=== PATIENT | male | born 1950 | race African-American/Black ===

== ENCOUNTER 2025-07-06 23:06 | Emergency (ER) | payer MEDICARE, SELFPAY ==
--- NOTE | ~2025-07-06 | XR_ITS ---
Examination: XR chest 2V Clinical History: shortness of breath Comparison: None Technique: PA and Lateral Findings: Cardiomegaly. Diffusely increased interstitial markings. No acute bony abnormality. IMPRESSION: 1. Interstitial pulmonary edema and/or pneumonitis. 2. Cardiomegaly. Reviewed, dictated and finalized at location R. LOCATOR
--- OUTSIDE RECORDS SUMMARY | 2025-07-06 02:40 | XMS_ITS ---
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 Up Plan requir ed at this time. Timeframe of Screening: Today Examination Category Sub-Category Detail Notes Category Not es Mental Status Exam SENSORIUM AND COGNITION A&Ox4 ATTENTION AND CONCENTRATION No deficits APPEARANCE Appropriate ATTITUDE AND BEHAVIOR Cooperative, Pleas ant EYE CONTACT Completed via Zoom. Client looked at the camera during the interview. AFFECT Congruent with repor teja mood MOOD Euthymic SPEECH QUANTITY Appropriate SPEECH QUALITY Fluent, Appropriate volume THOUGHT PROCESS Coherent and goal di rected THOUGHT CONTENT Appropriate - WNL MOTOR ACTIVITY Completed via Zoom. No abnormal movements or tics noted. SUICIDAL IDEATION Denies suicidal idea tion HOMICIDAL IDEATION Denies homicidal kelly ation HALLUCINATIONS Denies hallucination s INSIGHT Good JUDGMENT Good FUND OF KNOWLEDGE Good LANGUAGE Appropriate- WNL DEPRESSIVE SYMPTOMS Denies ELEVATED MOOD SYMPTOMS Denies, Not noted /observed ANXIETY Denies
[2025-07-06 23:21] VITALS: BP 201/84; PULSE 56; RESP 15; O2SAT 98
--- NOTE | 2025-07-06 23:32 | ECG_ITS ---
Test Date: 2025-07-06 23:56:23 Measurements Intervals [place] Rate: 58 P: 55 [place]: 154 QRS: 31 QRSD: 98 T: 161 QT: 440 QTc: 435 Interpretive Statements SINUS BRADYCARDIA POSSIBLE LEFT ATRIAL ENLARGEMENT [-0.1mV P-WAVE IN V1/V2] LEFT VENTRICULAR HYPERTROPHY AND ST-T CHANGE [VOLTAGE CRITERIA PLUS ST/T ABNORMALITY] No previous ECG available for comparison Electronically Signed On 07-07-2025 08:35:52 [employer] by Severo Mosley M.D.
--- NOTE | 2025-07-06 23:34 | ED.WEAKNESS ---
HPI - Weakness General Chief complaint: Shortness of Breath/Dyspnea Stated complaint: I don't feel good. Time Seen by Provider: 07/06/25 23:21 History of Present Illness HPI Narrative: Patient is a 74-year-old male who presents to the ER with complaints of ?not feeling good. He reports he started experiencing shakes approximately half an hour prior to arrival. Patient endorses mild shortness of breath and a slight headache. Denies any chest pain, recent fevers, cough, or urinary symptoms. Patient endorses a history of high blood pressure, depression, and substance abuse. He currently is receiving treatment at [place] for cocaine abuse. Related Data Allergies Allergy/AdvReac Type Severity Reaction Status Date / Time No Known Allergies Allergy Verified 07/06/25 23:07 Review of Systems Review of Systems: All systems reviewed & are unremarkable except as noted in HPI and below Exam Narrative: GENERAL: Well appearing, well-nourished, non-toxic, in no acute distress. HEAD: Normocephalic, atraumatic. NECK: Supple. No adenopathy, no masses. RESPIRATORY: Airway patent, respirations nonlabored. Clear to auscultation bilaterally, no rales, rhonchi, wheezing. CARDIOVASCULAR: Regular rate and rhythm, + murmur. Peripheral pulses 2+ and equal bilaterally. ABDOMINAL: Soft, nontender, nondistended, no hepatosplenomegaly. Normoactive BS. MUSCULOSKELETAL: Moves all extremities. Strength/ROM intact without gross deformities. SKIN: Warm, dry, normal color. No rashes. NEURO: A&O X3. Speech clear. Cranial nerves II-XII intact. No ataxic movements. PSYCHIATRIC: Appropriate mood and affect. Normal interaction. Course Vital Signs Vital signs: Vital Signs Pulse Rate 56 L 07/06/25 23:21 Respiratory Rate 15 07/06/25 23:21 Blood Pressure 201/84 H 07/06/25 23:21 Pulse Oximetry 98 07/06/25 23:21 Temperature 36.9 C 07/07/25 00:27 Pulse Rate 61 07/07/25 01:55 Respiratory Rate 17 07/07/25 01:55 Blood Pressure 178/87 H 07/07/25 01:55 Pulse Oximetry 95 07/07/25 01:55 Oxygen Delivery Room Air 07/06/25 23:52 MDM - Weakness MDM Narrative Medical decision making narrative: Patient is a 74-year-old male who presents to the ER with complaints of ?not feeling good. He reports he started experiencing shakes approximately half an hour prior to arrival. Patient endorses shortness of breath and slight headache. Denies any chest pain, recent fevers, cough, or urinary symptoms. Patient endorses a history of high blood pressure, depression, and substance abuse. He currently is receiving treatment at [place] for cocaine abuse. Labs Ordered: CBC, CMP, UA, UDS, COVID/flu/RSV, magnesium, proBNP, D-dimer, PTT, INR Imaging Ordered: Chest x-ray Medications Ordered: Hydralazine 50 mg p.o., Keflex p.o. Results: Patient's urinalysis indicates he has urinary tract infection. Diagnosis: Urinary tract infection Patient Education/Shared MDM: Results of lab work and imaging shared with patient. Pt reports he has no concerns pf STDs. He will be given a dose of Hydralazine PO and his first dose of oral antibiotic in the ER. Patient strongly advised to maintain hydration status upon discharge and follow-up with his PCP as soon as possible for further evaluation. He will be discharged home with a prescription for Keflex. Upon further evaluation, pt's BP has dropped to 178/87 without medication intervention so the Hydralazine will be held. Pt reports he takes his regular blood pressure medications in the morning. Strict return precautions provided. Patient verbalized understanding and is in agreement with plan. Vital signs stable at time of discharge. All questions answered. [id number]- Pt reports he is not circumcised and he would like to have a consult with urology to discuss circumcision. Will put through a referral. Pt's blood pressure is trending upwards again. Will give pt oral Hydralazine prior to discharge. Differential Diagnosis Differential diagnosis: Likely sepsis, dehydration and other (urinary tract infection, illicit drug abuse) Lab Data Attestation: I reviewed the patient's lab results. 07/06/25 23:52 07/06/25 23:52 Labs: Lab Results 07/06/25 07/06/25 07/06/25 Range/Units 23:46 23:52 23:52 WBC 5.1 (4.5-10.0) K/mm3 RBC 4.21 L (4.6-6.20) M/mm3 Hgb 13.3 L (14.0-18.0) g/dL Hct 39.6 L (42.0-52.0) % MCV 94.1 (80-100) fl MCH 31.6 (26-34) pg MCHC 33.6 (32-36) g/dl RDW 12.2 (11.5-14.5) % Plt Count 146 L (150-375) k/mm3 MPV 11.5 H (7.4-10.4) fl Immature Gran % (Auto) 0.4 (0-0.5) % Neut % (Auto) 54.2 (45.5-73.1) % Lymph % (Auto) 31.3 (18.3-44.2) % [place] % (Auto) 7.6 (2.6-8.5) % Eos % (Auto) 5.5 H (0-4.4) % Baso % (Auto) 1.0 (0.2-1.2) % Lymph # (Auto) 1.60 (0.9-3.2) K/mm3 [place] # (Auto) 0.4 (0.1-0.6) K/mm3 Eos # (Auto) 0.3 (0-0.3) K/mm3 Baso # (Auto) 0.1 (0.0-0.1) K/mm3 Abs Immat Gran (auto) 0.02 (0.00-0.031) K/mm3 Absolute Neuts (auto) 2.8 (1.3-6.7) K/mm3 Absolute Nucleated RBC 0.000 (0.0-0.012) K/mm3 Nucleated RBC % 0.0 (0.0-0.2) % PT 13.2 (11.1-14.7) Seconds INR 1.0 APTT 30.6 (22.3-36.8) Seconds D-Dimer < 0.27 (<0.48) ug/mL Sodium 139 (137-145) mmol/L Potassium 4.5 (3.4-5.0) mmol/L Chloride 105 (98-107) mmol/L Carbon Dioxide 28 (22-30) mmol/L Anion Gap 6 (4-12) mmol/L BUN 24 H (9-20) mg/dL Creatinine 1.34 H (0.7-1.3) mg/dL Estim Creat Clear Calc Not Reportable Estimated GFR 52 L (59 - ) Glucose 98 (65-110) mg/dL Calcium 9.1 (8.4-10.2) mg/dL Magnesium 2.0 Cancelled (1.6-2.3) mg/dL Total Bilirubin 0.6 (0.2-1.3) mg/dL AST 50 (17-59) U/L ALT 78 H (6-50) U/L Alkaline Phosphatase 83 (38-126) U/L NT-Pro-B Natriuret Pep 744 H (19.9-100) pg/mL Total Protein (6.3-8.2) g/dL Albumin (3.5-5.1) g/dL Urine Color Yellow (Yellow) Urine Appearance Clear (Clear) Urine pH 5.5 (5.0-9.0) Ur Specific [place] 1.012 (1.001-1.035) Urine Protein Negative (Negative) mg/dL Urine Glucose (UA) Negative (Negative) mg/dL Urine Ketones Negative (Negative) mg/dL Ur Blood (Man) Trace (Negative) Urine Nitrate Negative (Negative) Urine Bilirubin Negative (Negative) Urine Urobilinogen 0.2 (<2.0) mg/dL Leukocyte Esterase Rfl 2+ H (Negative) GARCIA/UL Urine RBC 0-2 (0-2) /hpf Urine WBC 6-10 H (0-3) /hpf Ur Squamous Epith Cells None seen (Few) /hpf Urine Bacteria Trace /hpf Urine Casts 0-2 Urine Opiates Screen Negative (Negative) Urine Methadone Screen Negative (Negative) Ur Barbiturates Screen Negative (Negative) Ur Phencyclidine Scrn Negative (Negative) Ur Amphetamine Screen Negative (Negative) U Benzodiazepines Scrn Negative (Negative) Urine Cocaine Screen Negative (Negative) U Cannabinoids Screen Negative (Negative) Influenza A (RT-PCR) (Negative) Influenza B (RT-PCR) (Negative) RSV (RT-PCR) (Negative) SARS-CoV-2 RNA (RT-PCR) (Negative) 07/06/25 07/07/25 Range/Units 23:52 00:28 WBC (4.5-10.0) K/mm3 RBC (4.6-6.20) M/mm3 Hgb (14.0-18.0) g/dL Hct (42.0-52.0) % MCV (80-100) fl MCH (26-34) pg MCHC (32-36) g/dl RDW (11.5-14.5) % Plt Count (150-375) k/mm3 MPV (7.4-10.4) fl Immature Gran % (Auto) (0-0.5) % Neut % (Auto) (45.5-73.1) % Lymph % (Auto) (18.3-44.2) % [place] % (Auto) (2.6-8.5) % Eos % (Auto) (0-4.4) % Baso % (Auto) (0.2-1.2) % Lymph # (Auto) (0.9-3.2) K/mm3 [place] # (Auto) (0.1-0.6) K/mm3 Eos # (Auto) (0-0.3) K/mm3 Baso # (Auto) (0.0-0.1) K/mm3 Abs Immat Gran (auto) (0.00-0.031) K/mm3 Absolute Neuts (auto) (1.3-6.7) K/mm3 Absolute Nucleated RBC (0.0-0.012) K/mm3 Nucleated RBC % (0.0-0.2) % PT (11.1-14.7) Seconds INR APTT (22.3-36.8) Seconds D-Dimer (<0.48) ug/mL Sodium (137-145) mmol/L Potassium (3.4-5.0) mmol/L Chloride (98-107) mmol/L Carbon Dioxide (22-30) mmol/L Anion Gap (4-12) mmol/L BUN (9-20) mg/dL Creatinine (0.7-1.3) mg/dL Estim Creat Clear Calc Estimated GFR (59 - ) Glucose (65-110) mg/dL Calcium (8.4-10.2) mg/dL Magnesium (1.6-2.3) mg/dL Total Bilirubin (0.2-1.3) mg/dL AST (17-59) U/L ALT (6-50) U/L Alkaline Phosphatase (38-126) U/L NT-Pro-B Natriuret Pep Cancelled (19.9-100) pg/mL Total Protein 6.7 (6.3-8.2) g/dL Albumin 3.9 (3.5-5.1) g/dL Urine Color (Yellow) Urine Appearance (Clear) Urine pH (5.0-9.0) Ur Specific [place] (1.001-1.035) Urine Protein (Negative) mg/dL Urine Glucose (UA) (Negative) mg/dL Urine Ketones (Negative) mg/dL Ur Blood (Man) (Negative) Urine Nitrate (Negative) Urine Bilirubin (Negative) Urine Urobilinogen (<2.0) mg/dL Leukocyte Esterase Rfl (Negative) GARCIA/UL Urine RBC (0-2) /hpf Urine WBC (0-3) /hpf Ur Squamous Epith Cells (Few) /hpf Urine Bacteria /hpf Urine Casts Urine Opiates Screen (Negative) Urine Methadone Screen (Negative) Ur Barbiturates Screen (Negative) Ur Phencyclidine Scrn (Negative) Ur Amphetamine Screen (Negative) U Benzodiazepines Scrn (Negative) Urine Cocaine Screen (Negative) U Cannabinoids Screen (Negative) Influenza A (RT-PCR) Negative (Negative) Influenza B (RT-PCR) Negative (Negative) RSV (RT-PCR) Negative (Negative) SARS-CoV-2 RNA (RT-PCR) Negative (Negative) Imaging Data Attestation: I personally reviewed and interpreted this imaging study as follows: Radiologist's impression: No acute cardiopulmonary abnormalities. Discharge Plan Discharge Clinical Impression: Urinary tract infection, Mild shortness of breath, Weakness generalized, History of drug abuse, History of CHF (congestive heart failure) Patient Disposition: Home Condition: Stable Instructions: Antibiotic Form, Urinary Tract Infection in Men (ED) Additional Instructions: Please return to the ER with any worsening symptoms. 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 Take all medications as prescribed, including regularly scheduled medications. Please complete your full dose of antibiotics. Remember to drink lots of water. Patient Language: Cambodian Prescriptions: New cephalexin 500 mg capsule 500 mg PO Q8H 7 Days Qty: 21 0RF Follow-up/Referrals: PHYSICIAN NOT ON STAFF,NONSTAFF [Non-Staff] Casey Burns MD [Physician, Urology] Time of Disposition: 01:59
[2025-07-06 23:39] VITALS: BP 205/107; PULSE 61; RESP 21; O2SAT 96
[2025-07-06 23:52] VITALS: O2SAT 95
[2025-07-06 23:57] LABS: Hematocrit 39.6 % (42.0-52.0); Hemoglobin 13.3 g/dL (14.0-18.0); Immature Granulocyte Percent A 0.4 % (0-0.5); Lymphocytes Absolute Auto 1.60 K/mm3 (0.9-3.2); Mean Corpuscular HGB Conc 33.6 g/dl (32-36); Mean Corpuscular Hemoglobin 31.6 pg (26-34); Mean Corpuscular Volume 94.1 fl (80-100); Nucleated Red Blood Cells Absolute Auto 0.000 K/mm3 (0.0-0.012); Nucleated Red Blood Cells Perc 0.0 % (0.0-0.2); Platelet Count Result 146 k/mm3 (150-375); Red Blood Count 4.21 M/mm3 (4.6-6.20); White Blood Count 5.1 K/mm3 (4.5-10.0)
[2025-07-07 00:01] VITALS: BP 205/107; PULSE 62; RESP 23; O2SAT 99
[2025-07-07 00:08] LABS: Alanine Aminotransferase 78 U/L (6-50); Albumin Level 3.9 g/dL (3.5-5.1); Alkaline Phosphatase 83 U/L (38-126); Anion Gap 6 mmol/L (4-12); Aspartate Amino Transferase 50 U/L (17-59); Bilirubin,Total 0.6 mg/dL (0.2-1.3); Blood Urea Nitrogen 24 mg/dL (9-20); Calcium 9.1 mg/dL (8.4-10.2); Carbon Dioxide 28 mmol/L (22-30); Chloride 105 mmol/L (98-107); Estimated Glomerular Filt Rate 52; Glucose 98 mg/dL (65-110); Magnesium 2.0 mg/dL (1.6-2.3); Potassium 4.5 mmol/L (3.4-5.0); Sodium 139 mmol/L (137-145); Total Protein 6.7 g/dL (6.3-8.2)
[2025-07-07 00:09] LABS: Add Urine Microscopic? YES; Appearance Urine Clear (Clear); Glucose Urine UA Negative (Negative); Leukocyte Esterase Ur 2+ LEU/UL (Negative); Nitrate Urine Negative (Negative); Non Pathogenic Casts 0-2; Specific Grav Ur 1.012 (1.001-1.035)
[2025-07-07 00:17] LABS: NT Pro B Type Natriuretic Pept 744 pg/mL (19.9-100)
[2025-07-07 00:19] LABS: Cannabinoid Screen Urine Negative (Negative)
[2025-07-07 00:25] LABS: INR 1.0; Prothrombin Time 13.2 Seconds (11.1-14.7)
[2025-07-07 00:27] VITALS: TEMP 36.9
[2025-07-07 00:27] LABS: Partial Thromboplastin Time 30.6 Seconds (22.3-36.8)
[2025-07-07 01:09] LABS: Influenza A QL RT-PCR Negative (Negative); Influenza B QL RT-PCR Negative (Negative); RSV RNA, RT-PCR Negative (Negative); SARS-CoV-2 RNA PCR Negative (Negative)
[2025-07-07 01:20] VITALS: BP 189/90
[2025-07-07 01:55] VITALS: BP 178/87; PULSE 61; RESP 17; O2SAT 95
[2025-07-07] MEDS: CEPHALEXIN 500 MG CAPSULE PO (01:59)
--- OUTSIDE RECORDS SUMMARY | 2025-07-07 02:02 | XMS_ITS | Patient Health Record ---
Author Organization [facility] Address [address] [place] [address] Care Team Providers Care Manager University Name Role Phone Jose Ramon Delarosa Primary Care Provider Dalila Duque Unavailable [phone] Donte Clark Unavailable [phone] Inge, Lisa Unavailable [phone] Allergies No Known Allergies Results Component Value Reference Range Notes CBC With Differential/Platel et* Reviewed date:07/06/2025 08:43:32 AM Interpretation: Performing Lab:[facility], [address] [facility], Phone - [phone], Director - [place] Notes/Report: WBC 5.1 3.4-10.8 x10E3/uL RBC 4.86 4.14-5.80 x10E6/uL Hemoglobin 15.7 13.0-17.7 g/dL Hematocrit 46.8 37.5-51.0 % MCV 96 79-97 fL MCH 32.3 26.6-33.0 pg MCHC 33.5 31.5-35.7 g/dL RDW 11.9 11.6-15.4 % Platelets 180 150-450 x10E3/uL Neutrophils 57 Not Estab. % Lymphs 29 Not Estab. % Monocytes 8 Not Estab. % Eos 5 Not Estab. % Basos 1 Not Estab. % Neutrophils (Absolute) 2.9 1.4-7.0 x10E3/uL Lymphs (Absolute) 1.5 0.7-3.1 x10E3/uL Monocytes(Absolute) 0.4 0.1-0.9 x10E3/uL Eos (Absolute) 0.3 0.0-0.4 x10E3/uL Baso (Absolute) 0.1 0.0-0.2 x10E3/uL Immature Granulocytes 0 Not Estab. % Immature Grans (Abs) 0.0 0.0-0.1 x10E3/uL CMP 14 Comprehensive Metabol ic Panel* Reviewed date:07/06/2025 08:44:53 AM Interpretation: Performing Lab:[facility], [address] [facility], Phone - [phone], Director - [facility] Notes/Report: Glucose 92 70-99 mg/dL BUN 21 8-27 mg/dL Creatinine 1.36 0.76-1.27 mg/dL eGFR 55 >59 mL/min/1.73 BUN/Creatinine Ratio 15 10-24 Sodium 142 134-144 mmol/L Potassium 5.0 3.5-5.2 mmol/L Chloride 104 96-106 mmol/L Carbon Dioxide, Total 27 20-29 mmol/L Calcium 9.4 8.6-10.2 mg/dL Protein, Total 6.6 6.0-8.5 g/dL Albumin 4.2 3.8-4.8 g/dL Globulin, Total 2.4 1.5-4.5 g/dL Bilirubin, Total 0.6 0.0-1.2 mg/dL Alkaline Phosphatase 88 47-123 IU/L AST (SGOT) 20 0-40 IU/L ALT (SGPT) 24 0-44 IU/L QuantiFERON-TB Gold Plus (18 [id number]) Reviewed date:07/06/2025 08:43:46 AM Interpretation: Performing Lab:[facility], [address] [facility], Phone - [phone], Director - [facility] Notes/Report: QuantiFERON Incubation Incubation performed. QuantiFERON-TB Gold Plus Negative Negative No response to M tuberculosis antigens detected. Infection with M tuberculosis is unlikely, but high risk individuals should be considered for additional testing (ATS/IDSA/CDC Clinical Practice Guidelines, 2017). The reference range is an Antigen minus Nil result of <0.35 IU/mL. Chemiluminescence immunoassay methodology QuantiFERON Criteria QuantiFERON-TB Gold Plus is a qualitative indirect test for M tuberculosis infection (including disease) and is intended for use in conjunction with risk assessment, radiography, and other medical and diagnostic evaluations. The QuantiFERON-TB Gold Plus result is determined by subtracting the Nil value from either TB antigen (Ag) value. The Mitogen tube serves as a control for the test. QuantiFERON TB1 Ag Value 0.10 QuantiFERON TB2 Ag Value 0.09 QuantiFERON Nil Value 0.10 QuantiFERON Mitogen Value 2.91 Breathalyzer Reviewed date:07/01/2025 10:35:03 AM Interpretation: Performing Lab: Notes/Report: ELIANE 0.000 14 Panel Urine Drug Screen Reviewed date:07/01/2025 10:35:43 AM Interpretation: Performing Lab: Notes/Report: THC neg JACQUIE POS MOP (OPI) neg AMP neg MET neg BAR neg BZO neg MDMA neg MTD neg OXY neg PCP neg BUP neg TCA neg FTY neg Reason For Referral No Information Medications Medication SIG (Take, Route, Frequency, Duration) Notes Start Date End Date Status Sertraline HCl 25 MG 1 tablet Orally Onc e a day; Duration: 30 days Active traZODone HCl 50 MG 0.5 to 1 tablet at bedtime as needed Orally Once a day; Duration: 30 days Active Ergocalciferol 1.25 MG (01959 UT) 1 capsule Orally weekly Active Atorvastatin Calcium 40 MG 1 tablet Oral ly Once a day Active Lisinopril 10 MG 1 tablet Orally Once a day Active Mometasone Furoate 0.1 % 1 application Externally Once a day Active Tamsulosin HCl 0.4 MG 1 capsule Orally O nce a day Active Nicotine 14 MG/24HR 1 patch to skin Transdermal Once a day Not-Takin g Melatonin 5 MG 1 tablet at bedtime as needed Orally Once a day; Duration: 30 days 07/01/2025 Active hydrOXYzine Pamoate 25 MG 1-2 capsules O rally every 4 hours as needed for anxiety, agitation, or inability to sleep. Do not give within 4 hours of diphenhydramine.; Duration: 30 days 07/01/2025 Active Multi Vitamin - 1 tablet Orally Once a day; Duration: 30 days 07/01/2025 Active Nicotine 21 MG/24HR 1 patch to skin Transdermal Once a day Active Thera - 1 tablet Orally Once a day Active Carvedilol 12.5 MG 1 tablet with food Orally Twice a day Active Albuterol Sulfate HFA 108 (90 Base) MCG/ACT 1 puff as needed Inhalation every 4 hrs Active Chlorhexidine Gluconate 0.12 % 15 mL swish for 30 seconds, then spit. Do not swallow. Mouth/Throat Twice a day; Duration: 30 day(s) 07/04/2025 Active Social History Tobacco Use: Social History Observation Description Date Details (start date - stop date) Former Smoker NA - 03/18/2025 PRAPARE Question Answer Notes Date Completed/Updated: 07/01/2025 What is your current housing situation? I do not have housing (staying with others, in a hotel, in a skilled nursing, living outside on the street, on a beach, or in a park) Are you worried about losing your housing? No What is the highest level of school that you have finished? 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 Check all that apply Medicine or any health care (medical, dental, mental health or vision),Phone How often do you see or talk to people that you care about and feel close to? (For example: talking to friends on the phone, visiting friends or family, going to [employer] or club meetings) More than 5 times a week How stressed are you? Stress is when someone feels tense, nervous, anxious, or can\t sleep at night because their mind is troubled Not at all In the past year have you sp ent more than 2 nights in a row in a detention, detention, longterm center, or juvenile correctional facility? No Are you a refugee? No What country are you from? [place] Do you feel physically and e motionally safe where you currently live? Yes In the past year, have you b een afraid of your partner or ex-partner? No PRAPARE Score: 7 Tobacco Control (Standard) Question Answer Notes Tobacco use: Former smoker When did you stop smoking? 03/18/2025 Problems Problem Type SNOMED Code ICD Code Onset Dates Problem Status W/U Status Risk Notes Problem Cervicalgia (04040295) Cervicalgia (M54.2) Active confirmed Problem Hypertension (58633808) Hypertension (I10) Active confirmed Problem Overweight (506985700) Over weight (E66.3) Active confirmed Problem Major depressive disorder (874767664) MDD (major depressive disorder) (F32.9) Active confirmed Problem Alcohol use disorder (6746693072) Alcohol use disorder (F10.99) Active confirmed Problem Physical examination, complete (38353116) Adult general medical examination (Z00.00) Active confirmed Problem Heart disease (25296898) Heart disease (I51.9) Active confirmed Problem Cocaine use disorder (0395410856) Cocaine use disorder (F14.10) Active confirmed Vital Signs Heart Rate 50 /min 07/01/2025 Temperature 97.8 degrees Fahrenheit 07/01/2025 Respiratory Rate 16 /min 07/01/2025 Oximetry 99 % 07/01/2025 Blood pressure diastolic 78 mm Hg 07/01/2025 Height 59in in 07/06/2025 Blood pressure systolic 160 mm Hg 07/01/2025 Weight 160lbs lbs 07/06/2025 BMI 32.31 kg/m2 07/06/2025 Encounters Encounter Location Date Provider Diagnosis [facility] [address] [place] [address] 07/01/2025 Donte Clark Adult general medica l examination Z00.00 ; Alcohol use disorder F10.99 ; Cocaine use disorder F14.10 ; Hypertension I10 ; Heart disease I51.9 ; Murmur, heart R01.1 and Cervicalgia M54.2 [facility] [address] [place] [address] 07/01/2025 Dalila Duque [address] [place] [address] 07/06/2025 Monika Alcazar Over weight E66.3 an d MDD (major depressive disorder) F32.9 [facility] [address] [place] [address] 07/04/2025 Donte Clark Toothache K08.89 and Poor dental hygiene Z91.[address] [place] [address] 07/06/2025 Monika Alcazar Assessments Encounter Date Diagnosis (ICD Code) Assessment Notes Treatment Notes Treatment Clinical Notes Section Notes 07/04/2025 Toothache (ICD-10 - K08.89) use tylenol every 6 hours as needed for pain. 07/04/2025 Poor dental hygiene (ICD-10 - Z91.89) 07/06/2025 Over weight (ICD-10 - E66.3) 07/06/2025 MDD (major depressive disorder) (ICD-10 - F32.9) 07/01/2025 Alcohol use disorder (ICD-10 - F10.99) 07/01/2025 Adult general medical examination (ICD-10 - Z00.00) Admit to the [facility] and initiate standing/protocol orders: The following PRN medications may be self-administered by patients under the supervision of approved staff or administered by nursing staff: Ibuprofen 200mg, 2-4 tablets by mouth (with food) every 6 hours as needed for pain (unless on lithium). (NOTE: Ibuprofen and acetaminophen may be given together, but alternating is recommended for continuous pain relief. Guaifenesin 400 mg, 1 tablet by mouth every four hours as needed for cough and chest congestion (take with large glass of water). Loratadine 10 mg, 1 tablet by mouth daily as needed for allergies, watery itchy eyes, or sinus drainage. Throat Lozenges, up to 4 tablets by mouth every three to four hours as needed for sore throat. Antacid tablets, 1-2 tablets by mouth every one to two hours as needed for indigestion or heart burn. If the client prefers liquid, could use: Liquid Antacid : 1 ounce by mouth up to four times daily as needed for indigestion or heartburn Omeprazole 20mg, 1 capsule by mouth once daily for 14 days for frequent heartburn (frequent heartburn is more than 2 episodes per week). Do not exceed 14 days. Do not give to client already taking a proton-pump inhibitor: esomeprazole (Nexium), lansoprazole (Prevacid), pantoprazole (Protonix), rabeprazole (Aciphex), dexlansoprazole (Dexilant) Zofran ODT disintegrating (under the tongue) 4 mg, 1-2 tablets every 8 hours as needed for nausea/vomiting. Milk of Magnesia (MOM): 1 ounce (30 milliliters) by mouth every day as needed for constipation. OR Miralax: Stir and fully dissolve 17 grams (1 packet or 1 capful to measured line) in any 4 to 8 ounces of beverage then drink once daily for constipation. Do not use for more than 7 days. OR Docusate 100 mg, 1 capsule twice daily as needed for constipation Hydrocortisone 1% Cream, apply topically (to the skin) to the affected area up to three times daily as needed for itching or inflammation (avoid eyes and genitals). 2% Antifungal Cream, apply topically (to the skin) as directed as needed to affected areas for athlete's foot or jock itch. Triple Antibiotic Ointment, apply topically (to the skin) up to three times daily as needed for minor cuts and scrapes. Carmex or Chapstick, apply topically (to the skin) as needed for chapped lips and skin. Orajel, apply to affected areas as needed for mouth or tooth pain. Lubricating Eye Drops, instill 1-2 drops to the affected eye(s) as needed for dry/irritated eye(s). Hemorrhoid medications, apply to affected area according to directions as needed for hemorrhoid discomfort and itch. Nix (Permethrin 1%) cream 2 ounces, apply topically (to the skin) as directed as needed for head lice. Sunscreen 30 SPF, Apply to exposed skin prior to exposure to sun. The following PRN medications must be approved by nursing staff before self-administration by patients: Diphenhydramine 25 mg, 2 tablets by mouth every 4 hours as needed for allergic reaction or itchy rash. Caution: Do not use hydroxyzine within 4 hours of diphenhydramine and vice versa. Loperamide 2 mg capsules, may give two capsules by mouth for the initial dose, followed by one capsule up to 3 times a day as needed for diarrhea. Acetaminophen 500 mg, 1 - 2 tablets by mouth every six hours as needed for pain. (NOTE: Ibuprofen and acetaminophen may be given together, but alternating is recommended for continuous pain relief). Oxygen-May administer oxygen 2L/min via nasal cannula if O2 saturation is less than 92%, AND client complains of shortness of breath. Target O2 saturation is 94-98%. Caution: Remember too much oxygen can be detrimental to a client with COPD. Oxygen is a drug and should be delivered by trained staff only. Nurses may remove superficial splinters and sutures from skin lacerations. May apply gauze or bandages to any weeping wounds. Contact nursing if there is pus, a foul odor, increased pain/redness/swelli ng, or if soaking through bandages. 07/01/2025 Cocaine use disorder (ICD-10 - F14.10) 07/01/2025 Hypertension (ICD-10 - I10) 07/01/2025 Heart disease (ICD-10 - I51.9) 07/01/2025 Murmur, heart (ICD-10 - R01.1) Patient is aware and has been seen by a spanner operator. 07/01/2025 Cervicalgia (ICD-10 - M54.2) Patient states his pain is controlled with OTC meds 07/01/2025 Other Continue treatment as recommended by [facility] staff. Encouraged patient to obtain routine medical care with patient's own primary care provider or establish as a patient at [facility] if no current primary care provider. 07/01/2025 Other Clinician met irvin Matt to assess needs for residential services. Clinician gathered information regarding historical presentation of mental health and substance use symptoms including withdrawal, HIV Risk assessment, psychiatric hospitalization history and presenting concern. Clinician conducted PHQ9 and CSSRS assessments as well as social drivers of health screening for the purposes of identifying additional service needs. Plan Of Treatment Next Appt Details Provider Name:Donte ledesma, 07/07/2025 11:00:00 AM, [address], [place], [address], Medical (General) History Medical History History ICD Code heart murmur hypertension hyperlipidemia Surgical History Surgery Date(Month/Year) spinal surgery 2022 Hospitalization History Reason Date(Month/Year) mental health 06/24/2025
[2025-07-07 03:00] VITALS: BP 197/82; PULSE 64; RESP 19; O2SAT 96
[2025-07-07 03:03] VITALS: BP 197/82; PULSE 64; RESP 19; O2SAT 96
== END 2025-07-07 03:03 | disposition home or self-care (01) ==
PROVIDERS: Emergency Provider Registered Nurse
DX: N39.0 Urinary tract infection, site not specified (principal); R06.02 Shortness of breath; R53.1 Weakness; F14.11 Cocaine abuse, in remission; I50.9 Heart failure, unspecified; Z20.822 Contact with and (suspected) exposure to COVID-19
CPT/HCPCS: 36415; 71046; 80053; 80307; 81001; 83735; 83880; 85025; 85380; 85610; 85730; 87086; 87637; 93005; 96374; 99284; A9270